=== PATIENT | male | born 1960 | race Caucasian/White ===

== ENCOUNTER 2022-09-10 10:06 | Emergency (ER) | payer BC ==
[~2022-09-10] VITALS: Ht 182.9 cm; Wt 106.0 kg
[2022-09-10] MEDS ORDERED: JANUMET1 TA1 PO (10:45)
[2022-09-10] MEDS ORDERED: ATORVASTATIN CA40 MG PO (10:46)
[2022-09-10 13:37] LABS: URINE BILIRUBIN - DIPSTICK NEGATIVE (NEGATIVE); URINE BLOOD DIPSTICK NEGATIVE (NEGATIVE); URINE COLOR YELLOW; URINE GLUCOSE - DIPSTICK >=1000 mg/dL (NEGATIVE); URINE KETONE TRACE mg/dL (NEGATIVE); URINE LEUK ESTERASE NEGATIVE (NEGATIVE); URINE PROTEIN - DIPSTICK NEGATIVE (NEG-TRACE); URINE SPECIFIC GRAVITY 1.015
[2022-09-10 13:39] LABS: URINE NITRITE - DIPSTICK NEGATIVE (Negative)
[2022-09-10] MEDS ORDERED: CEPHALEXIN500 MG PO (14:07)
[2022-09-10 14:16] VITALS: BP 140/77
== END 2022-09-10 14:23 | disposition home or self-care (01) | DRG 728 ==
LOC: ED 10:06
PROVIDERS: Family Medicine
DX: B37.49 Other urogenital candidiasis (principal); E11.9 Type 2 diabetes mellitus without complications

== ENCOUNTER 2022-09-15 10:07 | Emergency (ER) | payer BC ==
[2022-09-15] VITALS (7 sets, daily range): BP systolic 117–124; BP diastolic 69–75
[~2022-09-15] VITALS: Ht 182.9 cm; Wt 106.8 kg
[~2022-09-15 10:07] MED LIST: ATORVASTATIN CA40 MG PO; CEPHALEXIN500 MG PO; JANUMET1 TA1 PO
[2022-09-15 12:32] LABS: URINE BILIRUBIN - DIPSTICK NEGATIVE (NEGATIVE); URINE BLOOD DIPSTICK NEGATIVE (NEGATIVE); URINE COLOR YELLOW; URINE GLUCOSE - DIPSTICK >=1000 mg/dL (NEGATIVE); URINE KETONE NEGATIVE (NEGATIVE); URINE LEUK ESTERASE NEGATIVE (NEGATIVE); URINE PH 6.5 (4.5-8.0); URINE PROTEIN - DIPSTICK NEGATIVE (NEG-TRACE); URINE UROBILINOGEN - DIPSTICK 0.2 E.U./dL (0.2)
[2022-09-15 12:36] LABS: URINE NITRITE - DIPSTICK NEGATIVE (Negative)
[2022-09-15] MEDS ORDERED: KURIC21 EX (12:44)
== END 2022-09-15 12:49 | disposition home or self-care (01) | DRG 728 ==
LOC: ED 10:07
PROVIDERS: Internal Medicine
DX: B37.49 Other urogenital candidiasis (principal); E11.9 Type 2 diabetes mellitus without complications; Z79.84 Long term (current) use of oral hypoglycemic drugs